=== PATIENT | male | born 1975 | race Caucasian/White ===

== ENCOUNTER 2016-11-27 22:39 | Emergency (ER) | payer OTHER ==
--- NOTE | 2016-11-27 23:22 | XRAY Preliminary Report ---
Exam: XR Chest 2 View PA/LAT IMPRESSION: No acute intrathoracic plain film abnormality. [facility] SITE ID: [id number]
--- NOTE | 2016-11-27 23:25 | XRAY Report ---
EXAM: CHEST RADIOGRAPHY EXAM DATE: 11/27/2016 11:09 PM. CLINICAL HISTORY: Cough, fever. COMPARISON: 10/03/2014. TECHNIQUE: 2 views. FINDINGS: Lungs/Pleura: No focal opacities evident. No pleural effusion. No pneumothorax. Normal volumes. Mediastinum: Heart and mediastinal contours are unremarkable. Other: None. IMPRESSION: No acute intrathoracic plain film abnormality. [facility] Referring Provider Line: [phone] SITE ID: [id number]
[2016-11-27] MEDS ORDERED: IPRATROPIUM/ALBUTEROL 3 ML NEB INH STA (23:28)
[2016-11-27] MEDS ORDERED: predniSONE 20 MG TABLET PO STA (23:28)
--- NOTE | 2016-11-27 23:28 | ED Physician Documentation ---
PD HPI URI - Stated complaint Stated Complaint: COUGH,FEVER - Chief complaint Chief Complaint: Resp - History obtained from History obtained from: Patient, Family - History of Present Illness Timing - onset: How many days ago (10) Timing duration: Days (10) Timing details: Gradual onset Pain level max: 3 Pain level now: 3 Associated symptoms: Fever, Chills, Sweats, Nasal congestion, Rhinorrhea, Productive cough (brown), Dyspnea. No: Sore throat, Hemoptysis, Chest pain Contributing factors: COPD / asthma Improves by: Rest Worsened by: Breathing Similar symptoms before: Diagnosis (bronchitis, pneumonia) Recently seen: Not recently seen Review of Systems Constitutional: reports: Fever, Chills Nose: reports: Rhinorrhea / runny nose, Congestion Respiratory: reports: Cough, Wheezing GI: denies: Abdominal Pain, Nausea, Vomiting, Diarrhea Skin: denies: Rash Musculoskeletal: denies: Neck pain, Back pain Neurologic: denies: Headache PD PAST MEDICAL HISTORY - Past Medical History Past Medical History: Yes Cardiovascular: Hypertension - Past Surgical History Past Surgical History: No HEENT: Tonsil/Adenoidectomy - Present Medications Home Medications: Ambulatory Orders Medication Instructions Recorded Confirmed Albuterol Sulf [Ventolin Hfa 2 puffs INH Q4HR PRN #1 inhaler 11/28/16 Inhaler] Benzonatate [Tessalon Perle] 100 mg PO TID PRN #30 capsule 11/28/16 Doxycycline Hyclate 100 mg PO BID #20 tablet 11/28/16 Prednisone 40 mg PO DAILY #10 tablet 11/28/16 - Allergies Allergies/Adverse Reactions: Allergies Allergy/AdvReac Type Severity Reaction Status Date / Time No Known Drug Allergies Allergy Verified 11/27/16 22:49 - Social History Does the pt smoke?: Yes Smoking Status: Current every day smoker Does the pt drink ETOH?: Yes Does the pt have substance abuse?: No - Immunizations Immunizations are current?: Yes - POLST Patient has POLST: No PD ED PE NORMAL - Vitals Vital signs reviewed: Yes - General General: Alert and oriented X 3, No acute distress, Well developed/nourished - HEENT HEENT: PERRL, Moist mucous membranes - Neck Neck: Supple, no meningeal sign - Cardiac Cardiac: RRR - Respiratory Respiratory: No respiratory distress, Other (diminished BS bilaterally with wheezing) - Abdomen Abdomen: Normal bowel sounds, Soft, Non tender, Non distended - Derm Derm: Warm and dry - Neuro Neuro: Alert and oriented X 3 - Psych Psych: Normal mood, Normal affect Results - Vitals Vitals: Vital Signs - 24 hr 11/27/16 11/27/16 11/28/16 22:45 23:44 00:05 Temperature 36.6 C Heart Rate 95 87 96 Respiratory 18 18 18 Rate Blood Pressure 133/82 H 140/90 H O2 Saturation 98 96 Oxygen O2 Source Room air - Rads (name of study) cxr Radiology: Prelim report reviewed, EMP read contemporaneously, See rad report ( No acute abnormality) PD MEDICAL DECISION MAKING - ED course Complexity details: reviewed results, re-evaluated patient, considered differential, d/w patient, d/w family ED course: Patient is a 41-year-old male who presents to the emergency department with what appears to be acute bronchitis. He does smoke a pack a day and does feel better after inhaler usage. Will place on doxycycline for home as well as steroids and albuterol inhaler. He is well-appearing, nontoxic. No hypoxia here. Patient counseled regarding signs and symptoms for which I believe and urgent re-evaluation would be necessary. Patient with good understanding of and agreement to plan and is comfortable going home at this time This document was made in part using voice recognition software. While efforts are made to proofread this document, sound alike and grammatical errors may occur. Departure - Departure Disposition: 01 Home, Self Care Clinical Impression: Bronchitis with asthma, acute Condition: Good Instructions: ED Bronchitis Asthmatic Follow-Up: your,doctor in 1 week [Other] Prescriptions: Albuterol Sulf [Ventolin Hfa Inhaler] 2 puffs INH Q4HR PRN #1 inhaler PRN Reason: Wheezing Doxycycline Hyclate 100 mg PO BID #20 tablet Prednisone 40 mg PO DAILY #10 tablet Benzonatate [Tessalon Perle] 100 mg PO TID PRN #30 capsule PRN Reason: Cough Comments: The cough will likely last another 2 weeks. Return if you worsen. Your blood pressure was elevated today on check in to the emergency department. This does not mean that you have hypertension, it is a common phenomenon to check into the emergency department and have elevated blood pressure. I recommend that you see your primary care physician within the week to have it rechecked when you're feeling better. Discharge Date/Time: 11/28/16 00:06
[2016-11-27] MEDS ORDERED: predniSONE 20 MG TABLET ONE (23:35)
[2016-11-27] MEDS ORDERED: IPRATROPIUM/ALBUTEROL 3 ML NEB INH ONE (23:39)
[2016-11-28 00:06] VITALS: BP 140/90
== END 2016-11-28 00:06 | disposition home or self-care (01) ==
LOC: ED 22:39
DX: J20.9 Acute bronchitis, unspecified (principal); J45.909 Unspecified asthma, uncomplicated; I10 Essential (primary) hypertension; F17.200 Nicotine dependence, unspecified, uncomplicated
CPT/HCPCS: 71020; 94640; 99283; J7512; J7620

== ENCOUNTER 2019-04-10 17:21 | Emergency (ER) | payer OTHER ==
[2019-04-10 17:29] VITALS: BP 145/95
--- NOTE | 2019-04-10 17:33 | ED Physician Documentation ---
PD HPI URI - Stated complaint Stated Complaint: COUGH/FEVER - Chief complaint Chief Complaint: Resp - History of Present Illness Timing - onset: How many weeks ago (1) Timing duration: Weeks (1) Timing details: Gradual onset, Still present, Still present in ED (has had increased cough and to point of vomiting the past couple days.) Associated symptoms: Fever, Chills, Productive cough (clear sputum, and coughing to point of emesis.), Dyspnea (with wheezing). No: Hemoptysis, Chest pain Contributing factors: No: Sick contact, Travel, COPD / asthma Similar symptoms before: Has not had sx before Recently seen: Not recently seen Review of Systems Constitutional: reports: Fever, Myalgias Nose: reports: Congestion. denies: Rhinorrhea / runny nose Throat: denies: Sore throat Respiratory: reports: Dyspnea, Cough, Wheezing GI: reports: Nausea, Vomiting (with coughing hard). denies: Abdominal Pain, Diarrhea Skin: denies: Rash, Lesions Neurologic: reports: Generalized weakness. denies: Near syncope, Altered mental status, Headache PD PAST MEDICAL HISTORY - Past Medical History Cardiovascular: Hypertension Respiratory: None Neuro: None Endocrine/Autoimmune: None - Past Surgical History Past Surgical History: No HEENT: Tonsil/Adenoidectomy - Present Medications Home Medications: Ambulatory Orders Medication Instructions Recorded Confirmed Albuterol Sulf [Ventolin Hfa 2 - 3 puffs INH Q4HR PRN #1 inhaler 04/10/19 Inhaler] Benzonatate [Tessalon Perle] 100 mg PO TID PRN #25 capsule 04/10/19 Doxycycline Hyclate 100 mg PO BID #14 capsule 04/10/19 Ondansetron Odt [Zofran] 4 mg TL Q6H PRN #15 tablet 04/10/19 dexAMETHasone [Decadron] 4 mg PO DAILY #7 tablet 04/10/19 - Allergies Allergies/Adverse Reactions: Allergies Allergy/AdvReac Type Severity Reaction Status Date / Time No Known Drug Allergies Allergy Verified 04/10/19 17:29 - Social History Does the pt smoke?: Yes Smoking Status: Current every day smoker Does the pt drink ETOH?: Yes Does the pt have substance abuse?: No - Immunizations Immunizations are current?: Yes - POLST Patient has POLST: No PD ED PE NORMAL - Vitals Vital signs reviewed: Yes - General General: Alert and oriented X 3, Well developed/nourished - HEENT HEENT: Pharynx benign. No: Ears normal (earwax in both ear canals. No signs of canal infection. ) - Neck Neck: Supple, no meningeal sign - Cardiac Cardiac: RRR (mild tachycardic), No murmur - Respiratory Respiratory: No respiratory distress. No: Clear bilaterally (He does have cough stimulus with moderate to deep breaths. There is expiratory wheezing noted with coughing and moderate breaths. No coarse sounds are heard.) - Abdomen Abdomen: Soft, Non tender - Derm Derm: Normal color, Warm and dry - Extremities Extremities: No tenderness to palpate, Normal ROM s pain, No edema, No calf tenderness / cord - Neuro Neuro: Alert and oriented X 3, No motor deficit, Normal speech Results - Vitals Vitals: Vital Signs - 24 hr 04/10/19 17:27 Temperature 36.8 C Heart Rate 106 H Respiratory 20 Rate Blood Pressure 145/95 H O2 Saturation 95 Oxygen O2 Source Room air PD MEDICAL DECISION MAKING - ED course Complexity details: considered differential (A week of a marked cough to the point of vomiting associated with some wheezing. Commonly this will be viral and will treat it with inhalers and steroids and cough suppressants. However he has increased symptoms in the last couple of days with fevers now 2 and a productive cough. Consider bacterial transformation.), d/w patient Departure - Departure Disposition: 01 Home, Self Care Clinical Impression: Lower respiratory infection (e.g., bronchitis, pneumonia, pneumonitis, pulmonitis) Condition: Stable Record reviewed to determine appropriate education?: Yes Instructions: ED Upper Resp Infec Abx Tx Prescriptions: Albuterol Sulf [Ventolin Hfa Inhaler] 2 - 3 puffs INH Q4HR PRN #1 inhaler PRN Reason: Shortness Of Air/Wheezing Benzonatate [Tessalon Perle] 100 mg PO TID PRN #25 capsule PRN Reason: Cough dexAMETHasone [Decadron] 4 mg PO DAILY #7 tablet Doxycycline Hyclate 100 mg PO BID #14 capsule Ondansetron Odt [Zofran] 4 mg TL Q6H PRN #15 tablet PRN Reason: Nausea / Vomiting Comments: Use the albuterol inhaler 2 to 3 puffs 4 times a day with a spacer. Use it extra puffs as needed for wheezing and cough. Stay well-hydrated. Tessalon if needed for cough suppression. Ondansetron if needed for nausea. Use Decadron steroid daily for a week to reduce inflammation in the airways. This will reduce cough and wheezing. Add doxycycline antibiotic twice daily for a week. Your symptoms you have commonly are from a viral cause but given the duration and symptoms, its possible there may be some bacterial at this point. I am recheck if not improved well over the next several days. You may still have some wheezing and cough last for several weeks after the illness is improved but it should be relatively mild.
[2019-04-10] MEDS ORDERED: ALBUTEROL NEB 2.5 MG/3 ML INH STA (17:41)
[2019-04-10] MEDS ORDERED: CHERRY SYRUP 10 ML UDC PO ONE (17:42)
[2019-04-10] MEDS ORDERED: DEXAMETHASONE 10 MG/ML VIAL PO STA (17:42)
[2019-04-10] MEDS ORDERED: ONDANSETRON ODT 4 MG TABLET TL STA (17:42)
[2019-04-10] MEDS ORDERED: BENZONATATE 100 MG CAPSULE PO STA (17:42)
== END 2019-04-10 18:05 | disposition home or self-care (01) ==
LOC: ED 17:21
DX: J22 Unspecified acute lower respiratory infection (principal); F17.200 Nicotine dependence, unspecified, uncomplicated; I10 Essential (primary) hypertension
CPT/HCPCS: 99283; A9270; Q0162